=== PATIENT | female | born 1985 | race Caucasian/White ===

== ENCOUNTER 2017-04-17 16:52 | Emergency (ER) | payer BC ==
[2017-04-17] MEDS ORDERED: Acetaminophen 500 MG TAB ONE (17:12)
--- NOTE | 2017-04-17 18:43 | RAD ---
LEFT ANKLE THREE VIEWS: 04/17/17 HISTORY: Left ankle injury. FINDINGS: The ankle mortise is intact. No acute fracture or dislocation are apparent. IMPRESSION: No acute osseous abnormalities are demonstrated. POS: [facility]
== END 2017-04-17 17:37 | disposition home or self-care (01) ==
LOC: MADERS 16:52
DX: S93.402A Sprain of unspecified ligament of left ankle, initial encounter (principal); W22.8XXA Striking against or struck by other objects, initial encounter